=== PATIENT | male | born 1955 | race Caucasian/White ===

== ENCOUNTER 2018-11-28 23:02 | Emergency (ER) | payer MEDICARE ==
[2018-11-28] MEDS ORDERED: DUONEB 0.5-3 MG/3 ml Neb IH ONE ×2 (23:11→23:22)
[2018-11-28] MEDS ORDERED: Sodium Chloride 0.9% 1000 ML 1,000 ML IV STA (23:11)
[2018-11-28] MEDS ORDERED: solu-MEDROL 125 MG IV ONE (23:11)
[2018-11-28 23:53] LABS: BASOPHIL % 0.2 % (0.0-0.4); Basophil (Absolute #) 0.02 (0-0.4); Eosinophil % 1.1 % (0.00-5.0); Granulocyte Absolute (ANC) 8.01 (1.4-6.9); Granulocytes % 88.8 % (36.0-66.0); Hematocrit 43.1 % (42-50); Hemoglobin 14.6 gm/dl (12.5-18.0); Lymphocyte (Absolute #) 0.28 (1.0-4.6); Lymphocytes % 3.1 % (24.0-44.0); Mean Corpuscular Hemoglobin 29.8 pg (26-32); Mean Corpuscular Hgb Concent. 33.9 g/dl (32-36); Mean Platelet Volume 11.4 fl (6-9.5); Monocyte (Absolute #) 0.61 (0.0-1.3); Monocytes % 6.8 % (0.0-12.0); Platelet Count 163 K/mm3 (150-450)
[2018-11-28] MEDS ORDERED: Sodium Chloride 0.9% 1000 ML 1,000 ML ONE (23:59)
[2018-11-28] MEDS ORDERED: solu-MEDROL 125 MG ONE (23:59)
[2018-11-29 00:04] LABS: ALBUMIN 4.4 g/dL (3.5-5.0); ALKALINE PHOSPHATASE 126 U/L (38-126); ANION GAP 18.7 MEQ/L (5-15); BLOOD UREA NITROGEN 14 mg/dL (9-20); CHLORIDE 100 mmol/L (98-107); Calcium 9.2 mg/dL (8.4-10.2); Carbon Dioxide 23 mmol/L (22-30); Creatinine 1 1.28 mg/dL (0.66-1.25); Glucose 82 mg/dL (74-106); Potassium 4.4 mmol/L (3.5-5.1); SGOT/AST 24 U/L (17-59); SGPT/ALT 22 U/L (0-50); SODIUM 136 mmol/L (137-145); Total Protein 7.3 g/dL (6.3-8.2)
[2018-11-29] MEDS ORDERED: TYLENOL EXTRA STRENGTH 500 MG ONE (00:04)
[2018-11-29] MEDS ORDERED: TYLENOL EXTRA STRENGTH 500 MG PO STA (00:11)
[2018-11-29 00:26] LABS: Group A Strep NEGATIVE (NEGATIVE)
[2018-11-29 00:28] LABS: INFLUENZA A POSITIVE (NEGATIVE); INFLUENZA B NEGATIVE (NEGATIVE); RESPIRATORY SYNCTIAL VIRUS NEGATIVE (Negative)
[2018-11-29] MEDS ORDERED: Tamiflu 75MG Capsule PO ONE ×2 (00:29→00:38)
[2018-11-29] MEDS ORDERED: ULTRAM 50 MG PO ONE (01:25)
[2018-11-29] MEDS ORDERED: ULTRAM 50 MG ONE (01:40)
[2018-11-29 02:45] VITALS: O2SAT 95
[2018-11-29 02:56] LABS: Slide Review 1 YES
[2018-11-29 03:03] LABS: Appearance SLIGHTLY CLOUDY (CLEAR); Bilirubin NEGATIVE (NEGATIVE); Blood SMALL Ery/ul (0-5); Glucose NEGATIVE (NEGATIVE); Ketones MODERATE (NEGATIVE); Leukocyte Esterase NEGATIVE (NEGATIVE); Mucus MANY /HPF (NEGATIVE); Nitrite NEGATIVE (NEGATIVE); Protein,Urine Dip NEGATIVE (Negative); Specific Gravity 1.015 (1.005-1.025); Urobilinogen NEGATIVE mg/dL (0-1); WBC 0-2 /HPF (0-5)
[2018-11-29 03:15] LABS: Bacteria NONE SEEN /HPF (NEGATIVE)
--- NOTE | 2018-11-29 03:40 | ERPHSYRPT ---
- History of Present Illness Source: patient Exam Limitations: no limitations Patient Subjective Stated Complaint: pt states he has been having body aches, pain in his hips and bilat lower back and chills Triage Nursing Assessment: pt alert and oriented, answers questions approp. pt ambulatoryw ith steady gait noted. respirations nonlabored. insp wheeze noted on rt. skin hot and dry. Physician History: Pt is a 63 y/o male that presented to the ED with myalgias, SOB and cough. Pt has fever and he did not take any med for it. Pt states, for a couple of days, was feeling bad, and did not feel well. He has a h/o COPD and taking inhalers and Daliresp. Pt did not have the influenza vaccine this year. Pt denies chest pain or palpitations. No N/V/D or abdominal pain. He is SOB and coughing. He does have a wheeze. Timing/Duration: day(s) Cough Quality/Degree: moderate, dry cough Possible Cause: no prior episodes Modifying Factors: Improves With: albuterol nebulizer, exertion Associated Symptoms: fever, chills, cough, muscle aches, wheezing Allergies/Adverse Reactions: Penicillins Allergy (Verified 11/28/18 23:12) Home Medications: No Home Meds 06/25/12 [History] Hx Tetanus, Diphtheria Vaccination/Date Given: No Hx Influenza Vaccination/Date Given: No Hx Pneumococcal Vaccination/Date Given: No Immunizations Up to Date: No - Review of Systems Constitutional: Fever, Chills Eyes: No Symptoms Ears, Nose, & Throat: No Symptoms Respiratory: Cough, Dyspnea, Wheezing Cardiac: No Chest Pain, No Edema, No Syncope Abdominal/Gastrointestinal: No Abdominal Pain, No Nausea, No Vomiting, No Diarrhea Genitourinary Symptoms: No Dysuria Musculoskeletal: Myalgias Neurological: No Dizziness, No Focal Weakness, No Sensory Changes - Past Medical History Pertinent Past Medical History: Yes Neurological History: No Pertinent History ENT History: No Pertinent History, Other Cardiac History: Hypertension, Other Respiratory History: COPD Endocrine Medical History: No Pertinent History Musculoskeletal History: Arthritis, Degenerative Disk Disease GI Medical History: GERD History: No Pertinent History Psycho-Social History: Anxiety, Depression Male Reproductive Disorders: No Pertinent History Other Medical History: Chronic back pain - Past Surgical History Past Surgical History: No Neuro Surgical History: No Pertinent History Cardiac: No Pertinent History Respiratory: No Pertinent History Gastrointestinal: No Pertinent History Genitourinary: No Pertinent History Musculoskeletal: No Pertinent History Male Surgical History: No Pertinent History - Social History Smoking Status: Current every day smoker How long have you smoked: YRS Exposure to second hand smoke: Yes Drug Use: none Patient Lives Alone: No - Nursing Vital Signs Nursing Vital Signs: Initial Vital Signs Temperature 101.4 F 11/28/18 23:03 Pulse Rate 119 H 11/28/18 23:03 Respiratory Rate 20 11/28/18 23:03 Blood Pressure 120/76 11/28/18 23:03 O2 Sat by Pulse Oximetry 94 L 11/28/18 23:03 Pain Scale Pain Intensity 4 - Physical Exam General Appearance: moderate distress (secondaray to myalgias) Eye Exam: PERRL/EOMI, eyes nml inspection Ears, Nose, Throat Exam: normal ENT inspection, TMs normal, pharynx normal, moist mucous membranes Neck Exam: normal inspection, non-tender, supple, full range of motion Respiratory Exam: wheezing Cardiovascular Exam: regular rate/rhythm, normal heart sounds Gastrointestinal/Abdomen Exam: soft, No tenderness Extremity Exam: normal inspection, normal range of motion Neurologic Exam: alert, oriented x 3, cooperative, normal mood/affect, sensation nml, No motor deficits SpO2: 95 - Course Nursing assessment & vital signs reviewed: Yes - Radiology Exams Chest X-ray Interpretation: Interpreted by me (No PNA, PTX, or fluid overload.) Ordered Tests: Active Orders 24 hr Category Date Time Status IV Insertion STAT Care 11/28/18 23:11 Active CHEST 2 VIEWS (PA AND LAT) Stat Exams 11/28/18 23:13 Taken CBC W DIFF Stat Lab 11/28/18 23:11 Completed CMP Stat Lab 11/28/18 23:11 Completed UA W/RFX UR CULTURE Stat Lab 11/29/18 02:43 Completed Peak Expiratory Flow Rate ONCE RT 11/28/18 23:35 Active Respiratory Nebulizer STAT RT 11/28/18 23:14 Completed Respiratory Therapy Assessment DAILY RT 11/28/18 23:35 Active Medication Summary Discontinued Medications Generic Name Dose Route Start Last Admin Trade Name Freq PRN Reason Stop Dose Admin Acetaminophen Confirm 11/29/18 00:04 Tylenol Extra Strength 500 Mg Administered 11/29/18 00:05 Dose 1,000 mg .ROUTE .STK-MED ONE Acetaminophen 1,000 mg 11/29/18 00:11 11/29/18 00:17 Tylenol Extra Strength 500 Mg PO 11/29/18 00:12 1,000 mg STAT STA Administration Albuterol/Ipratropium 3 ml 11/28/18 23:11 11/28/18 23:34 Duoneb 0.5-3 Mg/3 Ml Neb IH 11/28/18 23:12 3 ml STAT ONE Administration Albuterol/Ipratropium Confirm 11/28/18 23:22 Duoneb 0.5-3 Mg/3 Ml Neb Administered 11/28/18 23:23 Dose 3 ml IH .STK-MED ONE Sodium Chloride 1,000 mls @ 999 mls/hr 11/28/18 23:11 11/29/18 03:13 Sodium Chloride 0.9% 1000 Ml IV 11/29/18 00:11 Infused .Q1H1M STA Infusion Sodium Chloride Confirm 11/28/18 23:59 Sodium Chloride 0.9% 1000 Ml Administered 11/29/18 00:00 Dose 1,000 mls @ ud .ROUTE .STK-MED ONE Methylprednisolone Sodium Succinate 125 mg 11/28/18 23:11 11/29/18 00:02 Solu-Medrol 125 Mg IV 11/28/18 23:12 125 mg STAT ONE Administration Methylprednisolone Sodium Succinate Confirm 11/28/18 23:59 Solu-Medrol 125 Mg Administered 11/29/18 00:00 Dose 125 mg .ROUTE .STK-MED ONE Oseltamivir Phosphate 75 mg 11/29/18 00:29 11/29/18 00:39 Tamiflu 75mg Capsule PO 11/29/18 00:30 75 mg STAT ONE Administration Oseltamivir Phosphate Confirm 11/29/18 00:38 Tamiflu 75mg Capsule Administered 11/29/18 00:39 Dose 75 mg PO .STK-MED ONE Tramadol HCl 100 mg 11/29/18 01:25 11/29/18 01:41 Ultram 50 Mg PO 11/29/18 01:26 100 mg STAT ONE Administration Tramadol HCl Confirm 11/29/18 01:40 Ultram 50 Mg Administered 11/29/18 01:41 Dose 100 mg .ROUTE .STK-MED ONE Lab/Rad Data: Laboratory Result Diagrams 11/28/18 23:11 11/28/18 23:11 Laboratory Results 11/29/18 11/28/18 11/28/18 Range/Units 02:43 Unknown 23:11 WBC (4.0-10.5) K/mm3 RBC (4.1-5.6) M/mm3 Hgb (12.5-18.0) gm/dl Hct (42-50) % MCV (78-100) fl MCH (26-32) pg MCHC (32-36) g/dl RDW (11.5-14.0) % Plt Count (150-450) K/mm3 MPV (6-9.5) fl Gran % (36.0-66.0) % Eos # (Auto) (0-0.5) Absolute Lymphs (auto) (1.0-4.6) Absolute Monos (auto) (0.0-1.3) Lymphocytes % (24.0-44.0) % Monocytes % (0.0-12.0) % Eosinophils % (0.00-5.0) % Basophils % (0.0-0.4) % Absolute Granulocytes (1.4-6.9) Basophils # (0-0.4) Sodium 136 L (137-145) mmol/L Potassium 4.4 (3.5-5.1) mmol/L Chloride 100 (98-107) mmol/L Carbon Dioxide 23 (22-30) mmol/L Anion Gap 18.7 H (5-15) MEQ/L BUN 14 (9-20) mg/dL Creatinine 1.28 H (0.66-1.25) mg/dL Estimated GFR > 60.0 ML/MIN Glucose 82 (74-106) mg/dL Calcium 9.2 (8.4-10.2) mg/dL Total Bilirubin 0.80 (0.2-1.3) mg/dL AST 24 (17-59) U/L ALT 22 (0-50) U/L Alkaline Phosphatase 126 (38-126) U/L Serum Total Protein 7.3 (6.3-8.2) g/dL Albumin 4.4 (3.5-5.0) g/dL Urine Color YELLOW (YELLOW) Urine Appearance SLIGHTLY CLOUDY (CLEAR) Urine pH 6.0 (5-6) Ur Specific [place] 1.015 (1.005-1.025) Urine Protein NEGATIVE (Negative) Urine Ketones MODERATE (NEGATIVE) Urine Blood SMALL (0-5) Manish/ul Urine Nitrite NEGATIVE (NEGATIVE) Urine Bilirubin NEGATIVE (NEGATIVE) Urine Urobilinogen NEGATIVE (0-1) mg/dL Ur Leukocyte Esterase NEGATIVE (NEGATIVE) Urine WBC (Auto) 0-2 (0-5) /HPF Urine RBC (Auto) 6-10 (0-2) /HPF U Epithel Cells (Auto) NONE (FEW) /HPF Urine Bacteria (Auto) NONE SEEN (NEGATIVE) /HPF Urine Mucus (Auto) MANY (NEGATIVE) /HPF Urine Culture Reflexed NO (NO) Urine Glucose NEGATIVE (NEGATIVE) mg/dL Influenza Type A Ag POSITIVE (NEGATIVE) Influenza Type B Ag NEGATIVE (NEGATIVE) RSV (PCR) NEGATIVE (Negative) Group A Strep Antibody NEGATIVE (NEGATIVE) Slides for Path Review 11/28/18 Range/Units 23:11 WBC 9.0 (4.0-10.5) K/mm3 RBC 4.90 (4.1-5.6) M/mm3 Hgb 14.6 (12.5-18.0) gm/dl Hct 43.1 (42-50) % MCV 88.0 (78-100) fl MCH 29.8 (26-32) pg MCHC 33.9 (32-36) g/dl RDW 15.0 H (11.5-14.0) % Plt Count 163 (150-450) K/mm3 MPV 11.4 H (6-9.5) fl Gran % 88.8 H (36.0-66.0) % Eos # (Auto) 0.10 (0-0.5) Absolute Lymphs (auto) 0.28 L (1.0-4.6) Absolute Monos (auto) 0.61 (0.0-1.3) Lymphocytes % 3.1 L (24.0-44.0) % Monocytes % 6.8 (0.0-12.0) % Eosinophils % 1.1 (0.00-5.0) % Basophils % 0.2 (0.0-0.4) % Absolute Granulocytes 8.01 H (1.4-6.9) Basophils # 0.02 (0-0.4) Sodium (137-145) mmol/L Potassium (3.5-5.1) mmol/L Chloride (98-107) mmol/L Carbon Dioxide (22-30) mmol/L Anion Gap (5-15) MEQ/L BUN (9-20) mg/dL Creatinine (0.66-1.25) mg/dL Estimated GFR ML/MIN Glucose (74-106) mg/dL Calcium (8.4-10.2) mg/dL Total Bilirubin (0.2-1.3) mg/dL AST (17-59) U/L ALT (0-50) U/L Alkaline Phosphatase (38-126) U/L Serum Total Protein (6.3-8.2) g/dL Albumin (3.5-5.0) g/dL Urine Color (YELLOW) Urine Appearance (CLEAR) Urine pH (5-6) Ur Specific [place] (1.005-1.025) Urine Protein (Negative) Urine Ketones (NEGATIVE) Urine Blood (0-5) Manish/ul Urine Nitrite (NEGATIVE) Urine Bilirubin (NEGATIVE) Urine Urobilinogen (0-1) mg/dL Ur Leukocyte Esterase (NEGATIVE) Urine WBC (Auto) (0-5) /HPF Urine RBC (Auto) (0-2) /HPF U Epithel Cells (Auto) (FEW) /HPF Urine Bacteria (Auto) (NEGATIVE) /HPF Urine Mucus (Auto) (NEGATIVE) /HPF Urine Culture Reflexed (NO) Urine Glucose (NEGATIVE) mg/dL Influenza Type A Ag (NEGATIVE) Influenza Type B Ag (NEGATIVE) RSV (PCR) (Negative) Group A Strep Antibody (NEGATIVE) Slides for Path Review YES - Progress Progress: improved Air Movement: good Progress Note: 11/29/18 03:41 Pt is a 63 y/o male that presented with myalgias, fever, and wheezing. lab work up, UA, CXR and reps panel were ordered. Pt was found to have influenza A. he did get a nebulizer treatment and IVF. He got Tylenol for fever and Tramadol for Myalgias. Tamiflu was given for the influenza. Pt improved, and he is feeling much better now. Pt is safe for d/c. He should continue Tamiflu , as ordered. 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 He should use OTC meds for symptoms relief. Blood Culture(s) Obtained: No Antibiotics given: No Will see patient in: office Counseled pt/family regarding: need for follow-up - Departure Time of Disposition: 03:45 Departure Disposition: Home Clinical Impression: Influenza A Condition: Stable Critical Care Time: No Referrals: JOHN CHEW MD [Primary Care Provider] - Additional Instructions: F/u with PCP. Finish Tamiflu as ordered. use OTC meds, for symptoms relief. Prescriptions: Oseltamivir 75 mg [Tamiflu 75MG Capsule] 75 mg PO BID #10 cap
[2018-11-29 04:11] VITALS: BP 122/73; PULSE 76
--- NOTE | 2018-11-29 09:24 | XRAY ---
Indication: Short of breath. Comparison: October 13, 2014. PA/lateral chest remains hyperinflated with now minimal lingular fibrosis/scarring. Remaining heart and lungs unremarkable. Bony thorax intact again with old left 4 rib fracture. Impression: Nonacute hyperinflated chest with chronic features.
== END 2018-11-29 03:40 | disposition home or self-care (01) ==
LOC: ED 23:02
DX: J10.1 Influenza due to other identified influenza virus with other respiratory manifestations (principal); J44.9 Chronic obstructive pulmonary disease, unspecified; K21.0 Gastro-esophageal reflux disease with esophagitis; F41.8 Other specified anxiety disorders
CPT/HCPCS: 36000; 36415; 71046; 80053; 81001; 85025; 87631; 87651; 94150; 94640; 96360; 96374; 99284; J2930; A9270-GY